=== PATIENT | male | born 1940 | race Caucasian/White ===

== ENCOUNTER 2017-03-11 06:10 | Emergency (ER) | payer MEDICARE ==
[~2017-03-11] VITALS: Ht 177.8 cm; Wt 82.0 kg
[~2017-03-11 06:10] MED LIST: DICL-86 PO; FISH1000 PO; LEVO100T4 PO; MEVA40TA6 PO; OMEP20CA5 PO; ONDA1TAB16 PO; TAB-TAB PO
[2017-03-11 06:11] VITALS: BP 147/84; PULSE 92; RESP 18; TEMP 97.8; O2SAT 96
--- NOTE | 2017-03-11 06:37 | PD ---
HPI Chief Complaint: Pain: Acute or Chronic Time Seen by Provider: 06:31 Travel History International Travel<30 days: No Contact w/Intl Traveler<30days: No Traveled to known affect area: No History of Present Illness HPI Patient comes emergency Department complaining of worsening right knee pain. Patient reports pain is been ongoing for several years getting worse over the past couple of months. Patient reports has been be getting even worse over the past week. Patient reports he saw orthopedic on Wednesday where he had x-rays done and was told take ibuprofen 200 mg for pain and follow up after doing physical therapy. Patient states he has not started physical therapy yet and continues to have pain has described as burning like in nature anterior aspect of his right knee is worse with walking and bending his right knee. Pain improves with moving around. Patient denies any fevers, trauma, edema, numbness or tingling anywhere, or radiation of the pain. PFSH Past Medical History Cancer: Yes (PROSTATE) Diverticulitis: Yes Hiatal Hernia: Yes Radiation Therapy: Yes Thyroid Disease: Yes (HYPO) Social History Alcohol Use: No Tobacco Use: No Substance Use: No Allergies-Medications (Allergen,Severity, Reaction): Uncoded Allergies: THANES (Allergy, Mild, 06/19/09) Reported Meds & Prescriptions Reported Meds & Active Scripts Active Prednisone 20 Mg Tab 20 Mg PO DAILY 3 Days Start on 03/12/17 Zofran Tab (Ondansetron HCl) 4 Mg Tab 4 Mg PO Q6-8HPRN Reported Voltaren (Diclofenac Sodium) 75 Mg Tabec 75 Mg PO BID Levothyroxine 100 mcg (Levothyroxine Sodium) 100 Mcg Tab 100 Mcg PO DAILY Multivitamin (Multivitamins) 1 Tab Tab 1 Tab PO DAILY Fish Oil 1,000 Mg Cap 1,000 Mg PO DAILY Mevacor (Lovastatin) 40 Mg Tab 40 Mg PO DAILY Prilosec 20 mg (Omeprazole) 20 Mg Capcr 20 Mg PO DAILY Review of Systems Except as stated in HPI: all other systems reviewed are Neg Physical Exam Narrative GENERAL: Well-developed, well nourished, in no acute distress, and non-ill appearing. SKIN: Focused skin assessment warm and dry. HEAD: Atraumatic. Normocephalic. EYES: Pupils equal and round. EOMI. No scleral icterus. No injection or drainage. ENT: No nasal bleeding or discharge. Mucous membranes pink and moist. NECK: Trachea midline. Supple. No nuclear rigidity. RESPIRATORY: No accessory muscle use. No respiratory distress. MUSCULOSKELETAL: No obvious deformities. No clubbing. No cyanosis. No edema. Decreased range of motion right knee secondary pain. Knee: Negative patellar apprehension, varus and valgus maneuvers, anterior draw test, and Rosalba test. Pulses equal BL distal to injury. Capillary refill less than 2 seconds distal to injury and equal BL. FROM distal to injury and equal BL. Strength distal to injury equal BL. NV intact distal to injury. Dorsal pulses equal BL. Sensation equal BL 1st web space. Patient reports there is palpation over medial anterior aspect of right knee. There is no erythematous, crepitus, or induration. It is afebrile. NEUROLOGICAL: Awake and alert. No obvious cranial nerve deficits. Motor grossly within normal limits. Normal speech. PSYCHIATRIC: Appropriate mood and affect; insight and judgment normal. Data Data Last Documented VS Vital Signs Date Time Temp Pulse Resp B/P (MAP) Pulse Ox O2 Delivery O2 Flow Rate FiO2 03/11/17 07:42 100 03/11/17 06:25 16 03/11/17 06:11 97.8 92 Room Air Orders Orders Acetamin-Hydrocod 325-5 Mg (Conger 5-325 (03/11/17 06:45) Dexamethasone Inj (Decadron Inj) (03/11/17 06:45) Splint Or Brace Apply/Monitor (03/11/17 06:32) Ed Discharge Order (03/11/17 07:28) MDM Medical Decision Making Medical Screen Exam Complete: Yes Emergency Medical Condition: Yes Differential Diagnosis Fracture, strain, contusion, bursitis, arthritis, septic arthritis, acute on chronic pain, chronic pain Narrative Course There is no evidence to suggest infectious bursitis at this time. There is no trauma to suspect contusion, strain or fracture. There is no clinical evidence to suggest gout or pseudogout, osteoarthritis, Rheumatoid arthritis, or septic arthritis. There is also no evidence to suggest tendonitis. Patient in no obvious distress upon re-evaluation. Patient was asked if they wanted to speak to my attending, which the patient did not wish to do at this time. Any questions/concerns in reference to patient diagnosis/condition discussed and clarified prior to patient's discharge. Reinforced sheer importance of close follow up with patient's primary physician or primary care clinic. Instructed patient to return to ED immediately, if symptoms return/ worsen. Patient showed understanding of above instructions. Further instructions and recommendations were detailed in discharge paperwork. Patient ambulated without difficulty out of ED at discharge. Diagnosis Primary Impression: Knee pain, right Qualified Codes: M25.561 - Pain in right knee Patient Instructions: General Instructions, Knee Exercises (GEN), Knee Pain (ED ) Additional Instructions: Follow-up with your primary care physician and orthopedics next week for reevaluation. Take all medication as prescribed. Do not take ibuprofen or diclofenac while taking medication prescribed today. Use [id number] Tylenol as needed for additional pain control. Follow instructions on the packaging. Wear Iggy wrap as needed for comfort. Return to the emergency department if symptoms get worse. Med/Other Pt SpecificInfo: Prescription(s) given Scripts Prednisone (Prednisone) 20 Mg Tab 20 MG PO DAILY for 3 Days, #3 TAB 0 Refills Start on 03/12/17 Prov: Rama Simmons DO 03/11/17 Disposition: 01 DISCHARGE HOME Condition: Stable Rudy Louis Mar 11, 2017 06:37
[2017-03-11] MEDS ORDERED: PRED20 PO (06:38)
[2017-03-11] MEDS ORDERED: DEXAMETHASONE SOD PHOS 20 MG/5 ML VIAL IM ONE (06:45)
[2017-03-11] MEDS ORDERED: ACETAMINOPHEN/HYDROcodone 325 MG/5 MG TAB PO ONE (06:45)
== END 2017-03-11 07:43 | disposition home or self-care (01) ==
LOC: NEPD 06:10
DX: M25.561 Pain in right knee (principal); E03.9 Hypothyroidism, unspecified; Z79.899 Other long term (current) drug therapy; Z87.19 Personal history of other diseases of the digestive system; Z85.46 Personal history of malignant neoplasm of prostate
CPT/HCPCS: 96372; 99282; J1100

== ENCOUNTER 2017-05-18 10:25 | Inpatient (IN) | payer MEDICARE ==
--- NOTE | 2017-05-17 10:34 | MH ---
cc: MARIAN HIRSCH MD DATE OF ADMISSION: 05/18/2017 ADMITTING DIAGNOSES Osteoarthritis of the right knee, varus deformity right knee, chondrocalcinosis right knee, pain right knee, gait disturbance. HISTORY The patient is a 77-year-old white male who has experienced pain of his right knee of longstanding duration. His history dated back almost 30 years when he was diagnosed as having calcium deposition about his right knee for which he was advised conservative treatment. Over the years thereafter, he had done reasonably well having retired from previous employment as a macias in the construction industry. Within the past several months, he experienced a flare-up of pain about his right knee unrelated to any recent injury or unusual activity for which he had been conforming to his daily routine in his home environment. His pain became more pronounced with a giving way sensation for which he began utilizing a cane as an ambulatory aid and taking diclofenac twice daily. He presented to the undersigned physician in February of this past year, and at that time x-ray studies did demonstrate narrowing throughout the medial compartment associated with a degenerative change and a varus deformity of at least 8 degrees magnitude, intra-articular calcification throughout the lateral compartment consistent with chondrocalcinosis. The patient was to continue with diclofenac and was initiated into a physical therapy program while being followed on an outpatient basis. His pain became somewhat more pronounced for which he did require at least one emergency room evaluation where he was given a prednisone injection and prescribed a course of prednisone thereafter. His symptoms tended to wax and wane at that time for which he elected to continue with conservative management until returning to the office in April of this year. He had completed a CT scan of his right knee which identified extensive chondrocalcinosis with no associated fracture but a significant joint effusion. The patient was absolutely miserable with regards to ongoing pain about his right knee for which he was remaining incapacitated with regards to ambulatory activities and continued to require use of his cane as a full-time ambulatory aid. Findings and treatment options were reviewed with the patient at that time. The pros and cons of continuing with conservative management versus operative intervention that would involve arthroscopic surgery versus total knee arthroplasty were reviewed in detail. The pluses and minuses of each of these procedures were outlined. Emphasis was made regarding the fact that the decision to proceed with surgery would be left entirely to the patient's discretion. The patient readily admitted that he was more than eager to proceed with operative treatment expressing his preference for total knee replacement as being the treatment of choice which in all likelihood would afford him a more favorable long-term benefit. In compliance with his wishes, he has currently been scheduled for admission in order that the above be accomplished. PAST MEDICAL HISTORY His past medical history, hospitalizations and surgeries have included - 1. Lumbar laminectomy and disc excision with fusion. 2. Laparoscopic cholecystectomy. 3. Colonoscopy. The patient's medical illnesses include prostate cancer for which he has undergone previous radiation therapy. Additional illnesses include - 1. Hypothyroidism. 2. Elevated cholesterol. 3. Hypertension. 4. Diabetes. 5. Acid reflux. MEDICATIONS His current medications. 1. Levofloxacin 0.1 mg daily. 2. Lovastatin 40 mg twice daily. 3. Lisinopril 2.5 mg daily. 4. Metformin 1000 mg twice daily. 5. Omeprazole 20 mg daily. 6. Vitamin B12 2000 mg daily. 7. Multivitamin tablet daily. 8. Fish oil 1200 mg daily. The patient conforms to a low-calorie diet with regards to his diabetes. ALLERGIES HE DENIES ANY KNOWN DRUG ALLERGIES. REVIEW OF SYSTEMS He does wear glasses for reading purposes. Denies headache, seizure or syncope. No sinus congestion or epistaxis. Diminished auditory acuity but hearing aids are not required. No tinnitus. No bleeding gums or dysphagia. He has partial upper dentures. Denies cough, shortness of breath, upper respiratory infection, pneumonia or tuberculosis. No angina. He is medically managed for hypertension. His appetite is good. Bowel movements are regular. No hepatitis. He is status post cholecystectomy. No ulcers. No hemorrhoids. No urinary tract infection. He has a history of kidney stones with spontaneous passage. No prostate disease. No history of fractures. No psychiatric illness. Remaining review of systems is unremarkable and noncontributory. FAMILY HISTORY The patient has been 55 years. His is 75 years of age. Her medical illnesses include insulin dependent diabetes and atrial fibrillation. No children. Family history is positive for hypertension, diabetes, heart disease, liver disease, breast, gastric and prostate cancer. 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 He completed a high school education. He denies active use of tobacco for at least 40 years but had been a two pack per day for approximately 20 years prior to that time. Ethanol consumption in the form of an occasional beer. PHYSICAL EXAMINATION Height 5 feet 9 inches, weight 176 pounds. GENERAL: An alert, oriented and responsive 77-year-old white male sitting quietly upon the examination table with no apparent distress. HEAD, EARS, EYES NOSE AND THROAT: Pupils are equal, round and reactive to light. Extraocular movements full. Sclerae are clear. External nares clear. External auditory canals clear. Semi-edentulous with dental implant in place about the maxillary distribution. Mucous membranes pink and moist. Pharynx clear. NECK: Supple. Active range of motion with no appreciable pain. Carotid pulse bilaterally. Trachea midline. Thyroid without enlargement. LUNGS: Clear to auscultation and percussion. No CVA tenderness. No discomfort throughout the dorsal lumbar spine. HEART: Regular rhythm. No murmur or gallop. ABDOMEN: Abdomen is soft, nontender. Bowel sounds present. RECTAL: Per primary care physician. EXTREMITIES: Right knee. No appreciable swelling or effusion. Obvious varus deformity with medial joint line tenderness. Apprehension and compression sign negative. Limited mobility in the 100 degree range of flexion with pain at the extreme of motion. No associated crepitation. No collateral ligamentous laxity. Magdalena test and drawer sign negative. Pivot shift and Rosalba sign positive for medial compartment pain. Straight-leg raising unremarkable at 80 degrees. Satisfactory mobility of the right hip with no associated pain. Mild antalgic gait. NEUROLOGIC: Cranial nerves II through XII grossly intact. IMPRESSION Osteoarthritis right knee, varus deformity right knee, chondrocalcinosis right knee pain right knee, gait disturbance. PLAN Right total knee arthroplasty. The nature of the planned surgical procedure, the potential complications and risks associated, the expectations of surgery and the consent form were thoroughly reviewed with the patient in the presence of his prior to admission to the hospital. Marco Antonio has indicated his full understanding regarding all of the above and given consent to proceed with treatment as outlined. Medical evaluation and clearance for surgery will be completed per preoperatively. MD WENDY Corado/RICHIE /4:54 PM /10:30 AM
[~2017-05-18] VITALS: Ht 177.8 cm; Wt 77.5 kg
[~2017-05-18 10:25] MED LIST changes: -DICL-86 PO; -FISH1000 PO; +FISHCAP4 PO; -LEVO100T4 PO; +LEVO100T5 PO; +LISI2.5T3 PO; +LOVA40TA PO; +METF1000 PO; -MEVA40TA6 PO; +MULTTAB67 PO; -OMEP20CA5 PO; +OMEP20TA93 PO; -ONDA1TAB16 PO; -TAB-TAB PO; +VITA20004 PO
[2017-05-18] MEDS ORDERED: SODIUM CHLORID 0.9% 500 ML IV PRN (11:30)
[2017-05-18] MEDS ORDERED: TRANEXAMIC ACID 1 GM PRIOR TO PROCEDURE IV SCH ×2 (11:30)
[2017-05-18] MEDS ORDERED: ceFAZolin 2 GM PREMIX 50 ML IV SCH (11:30)
[2017-05-18] MEDS ORDERED: POVIDONE IODINE 5% (ANTISEPSIS KIT) 4 APPLICATIONS EACH NARE PRN (11:30)
[2017-05-18] MEDS ORDERED: CHLORHEXIDINE GLUCONATE 2 % 1 PACK (2 CLOTHS) TOPICAL PRN (11:30)
[2017-05-18] MEDS ORDERED: POVIDONE IODINE 7.5% SCRUB 118 ML BOTTLE TOPICAL SCH (11:30)
[2017-05-18] MEDS ORDERED: METOPROLOL TARTRATE 25 MG TAB PO PRN (11:30)
[2017-05-18] MEDS ORDERED: LACTATED RINGER'S 1000 ML IV PRN (11:30)
[2017-05-18] MEDS ORDERED: ceFAZolin INJ 1,000 MG VIAL ONE (11:50)
[2017-05-18] MEDS ORDERED: ACETAMINOPHEN 1000 MG/100 ML 100 ML IV ONE (13:40)
[2017-05-18] MEDS ORDERED: MIDAZOLAM HCL 2 MG/2 ML VIAL ONE (13:40)
[2017-05-18] MEDS ORDERED: FAMOTIDINE 20 MG/2 ML VIAL ONE (13:41)
[2017-05-18] MEDS ORDERED: TRANEXAMIC ACID 1 GM POST-OP IV SCH ×2 (14:30)
[2017-05-18] MEDS ORDERED: BUPIVACAINE LIPOSOME PF 1.3% 20 ML VIAL ONE (15:06)
[2017-05-18] MEDS ORDERED: DO NOT ADM ANY ANTICOAGULANT DRUGS PRN (16:05)
[2017-05-18] MEDS ORDERED: ASPI-183 PO (16:07)
[2017-05-18] MEDS ORDERED: HYDR-3516 PO (16:07)
[2017-05-18] MEDS ORDERED: *MEPERIDINE 25 MG INJ VIAL PERIprocedural Use ONLY ONE (16:07)
--- NOTE | 2017-05-18 16:09 | HHI.FF ---
Face to Face Verification Diagnosis: (1) DJD (degenerative joint disease) of knee Physical Therapy Gait training Knee: Total knee, Protocol: Right, Full weight bearing Right LE Weight Bearing: WB as tolerated Right LE Range of Motion: Active ROM Nursing Dressing Changes: Daily dressing change I have seen patient Marco Antonio Quan on 05/18/17. My clinical findings support the need for the requested home health care services because: Limited ability to care for self High risk of falls I certify that my clinical findings support that this patient is homebound because: Post-op weakness Unsteady gait/balance Unsafe to leave home unassisted Ramos Reina MD May 18, 2017 16:09
[2017-05-18] MEDS ORDERED: WALKER WHEELS/F1 MIS (16:12)
[2017-05-18] MEDS ORDERED: NALOXONE HCL 0.4 MG/ML AMP IV PUSH PRN (16:15)
[2017-05-18] MEDS ORDERED: ACETAMINOPHEN 325 MG TAB PO PRN (16:15)
[2017-05-18] MEDS ORDERED: diphenhydrAMINE HCL 25 MG CAP PO PRN (16:15)
[2017-05-18] MEDS ORDERED: Post-op Orders (for Pharmacy) XX ONE (16:15)
[2017-05-18] MEDS ORDERED: ACETAMINOPHEN/HYDROcodone 325 MG/5 MG TAB PO PRN (16:15)
[2017-05-18] MEDS ORDERED: MISCELLANEOUS PHARMACY INFORMATION XX ONE (16:15)
[2017-05-18] MEDS ORDERED: ZOLPIDEM TARTRATE 5 MG TAB PO PRN (16:15)
[2017-05-18] MEDS ORDERED: ONDANSETRON HCL 4 MG/2 ML VIAL IVP PRN (16:15)
[2017-05-18] MEDS ORDERED: DOCUSATE SODIUM 100 MG CAP PO PRN (16:15)
[2017-05-18] MEDS ORDERED: *LABETALOL HCL 100 MG/20 ML VIAL PERIprocedural Use ONLY ONE (16:17)
[2017-05-18] MEDS ORDERED: *morphine SULFATE 10 MG/ML PERIprocedure ONLY ONE (16:30)
--- NOTE | 2017-05-18 16:37 | RADRPT ---
EXAM DATE/TIME: 05/18/2017 16:05 [facility] COMPARISON: No previous studies available for comparison. INDICATIONS : Post op right knee MEDICAL HISTORY : None. SURGICAL HISTORY : right knee replaced ENCOUNTER: Initial ACUITY: 1 day PAIN SCORE: 10/10 LOCATION: Right knee FINDINGS: There is placement of a total knee prosthesis appearing to be well-seated with anterior overlying robbi gical drains. CONCLUSION: Total knee prosthesis well seated Gabriel Souza MD on May 18, 2017 at 16:34 Board Certified Radiologist. This report was verified electronically.
[2017-05-18] MEDS ORDERED: MEPERIDINE HCL 25 MG/ML VIAL IV ONE (16:45)
[2017-05-18] MEDS ORDERED: TRANEXAMIC ACID INJ 1,000 MG in SODIUM CHLORIDE 0.9% INJ 100 ML IV SCH (17:00)
[2017-05-18] MEDS: DEXT 5%-NACL 0.45% 1000 ML INJ 1,000 ML IV SCH (17:00)
[2017-05-18] MEDS: MORPHINE SULFATE 30 MG/30 ML PCA IV SCH (17:03)
[2017-05-18 18:05] VITALS: BP 134/76; PULSE 94; RESP 18; TEMP 97.2; O2SAT 96
[2017-05-18] MEDS ORDERED: PILL SPLITTER OTHER PRN (19:15)
[2017-05-18 20:00] VITALS: BP 133/76; PULSE 87; RESP 15; TEMP 95.4; O2SAT 98
[2017-05-18 20:43] VITALS: O2SAT 93
[2017-05-18] MEDS: PCA - TOTAL MG MORPHINE DELIVERED PER SHIFT SCH (22:00)
[2017-05-19] VITALS: BP 157/83; PULSE 82; RESP 14; TEMP 96; O2SAT 95
[2017-05-19] MEDS: DEXT 5%-NACL 0.45% 1000 ML INJ 1,000 ML IV SCH ×2 (00:29→16:01)
[2017-05-19 04:00] VITALS: BP 130/83; PULSE 83; RESP 15; TEMP 97.4; O2SAT 96
[2017-05-19] MEDS: MORPHINE SULFATE 30 MG/30 ML PCA IV SCH (04:31)
[2017-05-19] MEDS: PCA - TOTAL MG MORPHINE DELIVERED PER SHIFT SCH ×3 (05:21→22:00)
[2017-05-19] MEDS: LEVOTHYROXINE SODIUM 100 MCG TAB PO SCH (05:21)
[2017-05-19] MEDS: LISINOPRIL 5 MG TAB PO SCH (07:18)
[2017-05-19] MEDS: PANTOPRAZOLE SOD 20 MG DELAYED RELEASE TAB PO SCH (07:19)
[2017-05-19] MEDS: metFORMIN HCL 500 MG TAB PO SCH ×2 (07:19→18:23)
[2017-05-19 07:20] LABS: HEMATOCRIT 31.5 % (39.0-51.0); HEMOGLOBIN 10.3 GM/DL (13.0-17.0)
[2017-05-19 08:00] VITALS: BP 169/77; PULSE 96; RESP 18; TEMP 98.8; O2SAT 95
--- NOTE | 2017-05-19 11:12 | MP ---
cc: MARIAN REINA DATE OF SURGERY 05/18/2017 PREOPERATIVE DIAGNOSIS Osteoarthritis of the right knee, varus deformity right knee, chondrocalcinosis right knee and pain of the right knee, gait disturbance. POSTOPERATIVE DIAGNOSIS Osteoarthritis of the right knee, varus deformity right knee, chondrocalcinosis right knee and pain of the right knee, gait disturbance. PROCEDURE Right total knee arthroplasty. SURGEON Marian Reina MD ANESTHESIA General endotracheal INDICATIONS This is a 77-year-old white male with right knee pain of longstanding duration. His history extends back almost 30 years when he was diagnosed as having calcium deposits about his right knee for which she was advised conservative treatment. Over the years thereafter, he did reasonably well having retired from previous employment as a macias and the construction industry. During the past year, he experienced a flare-up of pain about his right knee unrelated to any recent injury or unusual activity while he was going conforming to his daily routine in this home environment. This pain became more pronounced with a giving way sensation for which he utilized a cane as an ambulatory aid and was taking diclofenac twice daily. He presented to the undersigned physician in February of this past year and at this time his x-ray studies demonstrated arthritic change throughout the medial compartment with a varus deformity of at least 8 degrees magnitude and intra-articular calcification throughout the lateral compartment consistent with chondrocalcinosis. The patient elected to continue with diclofenac and was initiated into a course of physical therapy while being followed on an outpatient basis. His pain became more pronounced for which he did require at least one emergency room evaluation at which time he was then treated with prednisone. His symptoms waxed and waned thereafter and he later underwent a CT scan of his right knee which identified extensive chondrocalcinosis with no associated fracture, but significant joint effusion. The patient was absolutely miserable with regards to ongoing pain about his right knee for which he remained incapacitated with regards to all ambulatory activities and continuing to require use of his cane as a full-time ambulatory aid. Findings and treatment options were reviewed with the patient. The pros and cons of continuing with conservative management versus operative intervention that would involve arthroscopic surgery versus total knee replacement were reviewed in detail. The pluses and minuses of each of these surgical procedures were outlined. Emphasis was made regarding the fact that the decision to proceed with surgery would be left entirely to the patient's discretion. The patient readily admitted that he was more than eager to proceed with operative treatment and indicated his desire for total knee arthroplasty as being the treatment of choice which in all likelihood would afford him the more favorable long-term benefit. In compliance with his wishes, he was scheduled for admission at this time in order that the above be accomplished. FORMAT Following the induction of satisfactory general anesthesia by endotracheal intubation as completed per the department of anesthesia, a tourniquet was established around the proximal portion of the right lower extremity. The extremity proper was isolated with a U drape thereafter being prepped with Betadine solution and draped into a sterile field in the routine manner. Prior to initiation the actual procedure, the standard time-out protocol was completed. All parameters were appropriately addressed and confirmed by operating room personnel. The extremity was elevated for approximately one minute and the tourniquet thus inflated to 250 mmHg pressure. A sharp skin incision was initiated midline over the anterior aspect of the knee and developed underlying subcutaneous tissue with hemostasis maintained by electrocautery. By deepening dissection, the anterior capsule was exposed. A medial capsulotomy completed and the patella subluxed in a lateral orientation. Examination of the joint space revealed significant degenerative changes throughout the medial compartment extending into the patellofemoral articulation. Prominent chondrocalcinosis was associated. The articular surface of the patella was resected with power saw. The three holed guide was utilized for establishing post holes. Anterior cruciate ligament as well as medial and lateral meniscus structures were sharply excised. A centering hole was placed in the distal aspect of the femur allowing positioning of the intramedullary guide. The distal femoral cutting jig was attached and the distal femur resected. AP measurement noted 70 mm sizing to be appropriate. The matching cutting block was positioned. Anterior, posterior and chamfer cuts were completed. The tibial plateau was thereafter subluxed in an anterior orientation allowing positioning of the extramedullary guide. The tibial plateau was resected measured with 79 mm sizing determined to be satisfactory. A trial reduction followed utilizing a 70 mm anatomic femoral component, a 79 mm tibial base with a 10 mm bearing insert. The knee readily reduced and was carried through a passive range of motion with stability being demonstrated at both 0 and 90 degrees flexed posture to varus-valgus stress. Orientation was confirmed as appropriate with measurement of the pelvic guide through the mechanical axis of the knee. A trial reduction followed utilizing a 34 mm standard patellar button. Once again, good tracking was demonstrated with no tendency toward subluxation. All trial components being removed, the remaining portion of the proximal tibia was prepared for insertion of the permanent component. The joint space was thoroughly lavaged with pulsating antibiotic solution. Hemostasis maintained by electrocautery. An autogenous bone plug was inserted into the distal femoral guide hole and thereafter a preparation of Palacos bone cement was utilized in inserting knee components in a sequential fashion which included a 79 mm fixed cruciate tibial plate to which a 10 mm Vanguard tibial bearing insert was secured with locking arreguin. The 70 mm vanguard femoral component was firmly seated onto the distal femur, excess cement being removed, the knee was brought to full extension and thereafter the 10 mm standard three post patellar button was attached and maintained in place with patellar clamp while cement hardening was completed. Final range of motion assessment noted good tracking and stability throughout the knee. Irrigation was repeated with hemostasis maintained. Autovac drain tubes were inserted through superior stab wounds. The capsule was repaired with 0 Vicryl suture. The remaining portion of the wound was closed in layers in the routine manner with skin margins being reapproximated with a running subcuticular 3-0 Vicryl suture. Steri-Strips were applied over which Xeroform gauze and a bulky dry sterile dressing placed. Tourniquet deflated after 42 minutes of tourniquet time. The extremity being supported in a canvas knee splint, anesthesia was discontinued and the patient thus transferred to a hospital bed and returned to the recovery room in satisfactory condition having tolerated his operative procedure well. Estimated blood loss was 75-100 cc. All implants were of the [employer] hand icer. MD WENDY Corado/WILBER /3:51 PM /11:02 AM
[2017-05-19 12:00] VITALS: BP 125/69; PULSE 87; RESP 18; TEMP 98.3; O2SAT 94
[2017-05-19] MEDS: ACETAMINOPHEN/HYDROcodone 325 MG/5 MG TAB PO PRN ×3 (14:05→22:12)
[2017-05-19] MEDS: RIVAROXABAN 10 MG TAB PO SCH (15:47)
[2017-05-19 16:00] VITALS: BP 155/77; PULSE 99; RESP 18; TEMP 98.9; O2SAT 94
--- NOTE | 2017-05-19 17:33 | PD.CONS ---
HPI Service [facility] Consult Requested By Reason for Consult Medical Management Primary Care Physician No Primary Care Physician Diagnoses: (1) DJD (degenerative joint disease) of knee History of Present Illness 77M who was admitted and underwent total right knee replacement. He is doing well post op, only complaint is post sugical pain. Review of Systems Constitutional: DENIES: Fever, Chills, Dizziness Eyes: DENIES: Blurred vision, Eye inflammation, Vision loss Ears, nose, mouth, throat: DENIES: Hearing loss, Nasal discharge, Throat pain, Ear Pain, Sinus Pain, Toothache Respiratory: DENIES: Cough, Wheezing, Hemoptysis Cardiovascular: DENIES: Chest pain, Palpitations, Syncope Gastrointestinal: DENIES: Black stools, Bloody stools, Constipation, Diarrhea, Nausea, Vomiting Genitourinary: DENIES: Urinary frequency, Urinary incontinence, Hematuria Musculoskeletal: COMPLAINS OF: Joint pain, Stiffness Integumentary: DENIES: Rash Immunologic/allergic: DENIES: Eczema Neurologic: DENIES: Headache, Seizures, Speech Problems Psychiatric: DENIES: Anxiety, Confusion, Mood changes, Depression Past Family Social History Allergies: Coded Allergies: No Known Allergies (Unverified , 05/18/17) Past Medical History Type 2 diabetes Hiatal Hernia Prostate CA Past Surgical History Right knee replacement yesterday Lumbar fusion 1970 Family History Breast CA Type 2 diabetes Social History No smoking or alcohol for the last 40 years Physical Exam Vital Signs Vital Signs Date Time Temp Pulse Resp B/P (MAP) Pulse Ox O2 Delivery O2 Flow Rate FiO2 05/19/17 16:00 98.9 99 18 155/77 (103) 94 05/19/17 12:00 98.3 87 18 125/69 (87) 94 05/19/17 08:00 98.8 96 18 169/77 (107) 95 05/19/17 05:21 17 05/19/17 04:40 18 05/19/17 04:31 17 05/19/17 00:00 96.0 82 14 157/83 (107) 95 05/18/17 22:00 18 05/18/17 20:43 93 Nasal Cannula 2.00 05/18/17 20:00 95.4 87 15 133/76 (95) 98 05/18/17 18:05 97.2 94 18 134/76 (95) 96 05/18/17 17:35 80 16 96 Nasal Cannula 3 05/18/17 17:30 97.6 81 16 139/78 (98) 95 Nasal Cannula 3 Physical Exam GENERAL: Well-nourished, well-developed patient. SKIN: Warm and dry, surgical incision under bandages on right leg, surgical drain HEAD: Normocephalic. EYES: No scleral icterus. No injection or drainage. NECK: Supple, trachea midline. No JVD or lymphadenopathy. CARDIOVASCULAR: Regular rate and rhythm without murmurs, gallops, or rubs. RESPIRATORY: Breath sounds equal bilaterally. No accessory muscle use. GASTROINTESTINAL: Abdomen soft, non-tender, nondistended. NEUROLOGICAL: Awake, alert, and oriented x 3. Non-focal. Laboratory Laboratory Tests Test 05/19/17 06:05 Hemoglobin 10.3 Hematocrit 31.5 Result Diagram: 05/19/17 0605 Assessment and Plan Problem List: (1) DJD (degenerative joint disease) of knee ICD Code: M17.10 - Unilateral primary osteoarthritis, unspecified knee Assessment and Plan Total Right knee replacement 05/18/17 Doing well post op, up to feet today, limited ambulation due to pain Type 2 Diabetes Self-described "borderline" diabetic, well managed on Metformin alone Will give Metformin given expected short stay Coverage may be added if needed BMP for baseline glucose tomorrow morning Hypothyroidism Continue home meds Dyslipidemia Held while hospitalized due to rhabdomyolysis risk DVT Prophylaxis Xarelto Problem Qualifiers (1) DJD (degenerative joint disease) of knee: Qualified Codes: M17.11 - Unilateral primary osteoarthritis, right knee Bebeto Aldana MD May 19, 2017 17:33
[2017-05-19 20:17] VITALS: BP 158/91; PULSE 106; RESP 18; TEMP 99.6; O2SAT 97
[2017-05-19 22:14] LABS: AUTOMATED NEUTROPHIL # 6.8 TH/MM3 (1.8-7.7); BASOPHIL % 0.4 % (0.0-2.0); EOSINOPHIL # 0.1 TH/MM3 (0-0.4); EOSINOPHIL % 0.5 % (0.0-4.0); HEMATOCRIT 29.8 % (39.0-51.0); LYMPHOCYTE # 2.8 TH/MM3 (1.0-4.8); MEAN CELL VOLUME 97.3 FL (80.0-100.0); MEAN CORPUSCULAR HEMOGLOBIN 32.7 PG (27.0-34.0); MEAN CORPUSCULAR HGB CONC 33.6 % (32.0-36.0); MEAN PLATELET VOLUME 8.1 FL (7.0-11.0); MONO % 9.2 % (0.0-8.0); NEUT % 63.9 % (16.0-70.0); PLATELET COUNT 248 TH/MM3 (150-450); RED BLOOD COUNT 3.07 MIL/MM3 (4.50-5.90); RED CELL DISTRIBUTION WIDTH 14.8 % (11.6-17.2); WHITE BLOOD COUNT 10.7 TH/MM3 (4.0-11.0)
[2017-05-19 22:23] LABS: BICARBONATE 25.9 MEQ/L (21.0-32.0); CALCIUM 8.2 MG/DL (8.5-10.1); CREATININE 1.1 MG/DL (0.60-1.30)
[2017-05-20] VITALS (8 sets, daily range): BP systolic 129–173; BP diastolic 83–94; PULSE 102–128; RESP 18–20; TEMP 97.6–100; O2SAT 92–98
[2017-05-20] MEDS: DEXT 5%-NACL 0.45% 1000 ML INJ 1,000 ML IV SCH ×3 (00:01→16:01)
[2017-05-20] MEDS: ACETAMINOPHEN/HYDROcodone 325 MG/5 MG TAB PO PRN ×4 (02:24→16:20)
[2017-05-20] MEDS: PCA - TOTAL MG MORPHINE DELIVERED PER SHIFT SCH ×3 (06:00→22:00)
[2017-05-20] MEDS: LEVOTHYROXINE SODIUM 100 MCG TAB PO SCH (06:11)
--- NOTE | 2017-05-20 07:27 | PD.ORT.PN ---
Subjective Post Op Day #: 2 Subjective Remarks He is doing well. He has minimal complaints related to his knee at this time. He has been able to get out and walk a little bit with a walker. He lives in a motor home but is able to negotiate steps without difficulty. Range of Motion 0-78. Distance Walked 30 feet with PT. Objective Vitals Vital Signs Date Time Temp Pulse Resp B/P (MAP) Pulse Ox O2 Delivery O2 Flow Rate FiO2 05/20/17 04:58 98.5 106 18 160/90 (113) 95 05/20/17 01:08 97.6 111 18 140/85 (103) 92 05/19/17 22:00 17 05/19/17 20:17 99.6 106 18 158/91 (113) 97 05/19/17 16:00 98.9 99 18 155/77 (103) 94 05/19/17 12:00 98.3 87 18 125/69 (87) 94 05/19/17 08:00 98.8 96 18 169/77 (107) 95 I/O 05/19/17 05/19/17 05/19/17 05/20/17 05/20/17 05/20/17 07:00 15:00 23:00 07:00 15:00 23:00 Intake Total 1480 ml 650 ml Output Total 610 ml 100 ml Balance 870 ml 550 ml Intake Oral 480 ml 650 ml IV Total 1000 ml Output Urine Total 550 ml Stool Total 0 ml Drainage Total 60 ml 100 ml # Voids 1 3 1 3 # Bowel Movements 0 0 Result Diagram: 05/19/17 2140 05/19/17 2140 Imaging Last 72 hours Impressions Knee X-Ray 05/18/17 1601 Signed Impressions: Service Date/Time: Thursday, May 18, 2017 16:05 - CONCLUSION: Total knee prosthesis well seated Gabriel Souza MD Objective Remarks He is sitting out of bed in a chair. His knee is flexed easily to 85-90. His dressing is dry and intact. His neurovascular status is intact. Assessment & Plan Ortho Post Op Day #: 2 Problem List: (1) Status post total right knee replacement ICD Codes: Z96.651 - Presence of right artificial knee joint Plan: Continue postop care and PT. Assessment and Plan Condition: Good. Orthopedically stable. DVT prophylaxis: aspirin, sequentials. Discharge plans: Home with home health care. Further follow-up and care is through Dr. Reina. Jorge Alberto Boyer MD ([facility]) May 20, 2017 07:27
[2017-05-20] MEDS: metFORMIN HCL 500 MG TAB PO SCH ×2 (08:31→17:29)
[2017-05-20] MEDS: PANTOPRAZOLE SOD 20 MG DELAYED RELEASE TAB PO SCH (08:31)
[2017-05-20] MEDS: LISINOPRIL 5 MG TAB PO SCH (08:31)
--- NOTE | 2017-05-20 14:13 | HHI.PR ---
Subjective Remarks Overall pain control. However not eating much this morning. No nausea or vomiting. Objective Vitals Vital Signs Date Time Temp Pulse Resp B/P (MAP) Pulse Ox O2 Delivery O2 Flow Rate FiO2 05/20/17 08:00 99.2 128 20 150/87 (108) 96 05/20/17 06:00 18 05/20/17 04:58 98.5 106 18 160/90 (113) 95 05/20/17 01:08 97.6 111 18 140/85 (103) 92 05/19/17 22:00 17 05/19/17 20:17 99.6 106 18 158/91 (113) 97 05/19/17 16:00 98.9 99 18 155/77 (103) 94 I/O 05/19/17 05/19/17 05/19/17 05/20/17 05/20/17 05/20/17 07:00 15:00 23:00 07:00 15:00 23:00 Intake Total 1480 ml 650 ml Output Total 610 ml 100 ml Balance 870 ml 550 ml Intake Oral 480 ml 650 ml IV Total 1000 ml Output Urine Total 550 ml Stool Total 0 ml Drainage Total 60 ml 100 ml # Voids 1 3 1 3 # Bowel Movements 0 0 Result Diagram: 05/19/17 2140 05/19/17 2140 Other Results Item Value Date Time Bedside Blood Glucose 182 mg/dl 05/20/17 0830 Imaging Last Impressions Knee X-Ray 05/18/17 1601 Signed Impressions: Service Date/Time: Thursday, May 18, 2017 16:05 - CONCLUSION: Total knee prosthesis well seated Gabriel Souza MD Objective Remarks GENERAL: This is a well-nourished, well-developed patient, in no apparent distress. CARDIOVASCULAR: Regular rate and rhythm RESPIRATORY: Clear to auscultation. Breath sounds equal bilaterally. No wheezes , rales, or rhonchi. MUSCULOSKELETAL: Extremities without clubbing, cyanosis, or edema. Right knee bandage clean dry intact NEURO: Alert & Oriented x4 to person, place, time, situation. Moves all ext x4 A/P Problem List: (1) DJD (degenerative joint disease) of knee ICD Code: M17.10 - Unilateral primary osteoarthritis, unspecified knee Status: Chronic Assessment and Plan Total Right knee replacement 05/18/17 ; status post operative day #2 Continue postoperative care, physical therapy, pain control. Type 2 Diabetes - Continue metformin, continue blood glucose monitoring with sinus scale insulin as needed and also evaluate oral intake. Hypothyroidism Continue home meds Hypertension- essential, resume lisinopril DVT Prophylaxis Xarelto Problem Qualifiers (1) DJD (degenerative joint disease) of knee: Qualified Codes: M17.11 - Unilateral primary osteoarthritis, right knee Mellisa Gerard MD May 20, 2017 14:13
[2017-05-20] MEDS: RIVAROXABAN 10 MG TAB PO SCH (16:20)
[2017-05-20] MEDS ORDERED: BISACODYL 10 MG SUPP RECTAL PRN (22:00)
[2017-05-21] VITALS: BP 156/99; PULSE 107; RESP 18; TEMP 99.8; O2SAT 95
[2017-05-21] MEDS: DEXT 5%-NACL 0.45% 1000 ML INJ 1,000 ML IV SCH ×2 (00:01→08:01)
[2017-05-21 04:00] VITALS: BP 169/96; PULSE 111; RESP 18; TEMP 98.9; O2SAT 95
[2017-05-21] MEDS: LEVOTHYROXINE SODIUM 100 MCG TAB PO SCH (05:14)
[2017-05-21] MEDS: PCA - TOTAL MG MORPHINE DELIVERED PER SHIFT SCH ×2 (06:00→08:23)
--- NOTE | 2017-05-21 07:59 | PD.ORT.PN ---
Subjective Post Op Day #: 3 Subjective Remarks He is doing well. He has minimal complaints related to his knee at this time. He has been able to get out and walk to the bathroom with a walker. He lives in a motor home but is able to negotiate steps without difficulty. Range of Motion 0 extension to 85 of flexion. Distance Walked 100 feet with physical therapy. Objective Vitals Vital Signs Date Time Temp Pulse Resp B/P (MAP) Pulse Ox O2 Delivery O2 Flow Rate FiO2 05/21/17 04:00 98.9 111 18 169/96 (120) 95 05/21/17 00:00 99.8 107 18 156/99 (118) 95 05/20/17 20:00 99.5 102 18 159/94 (115) 94 05/20/17 19:09 Room Air 05/20/17 18:55 98 Nasal Cannula 2.00 05/20/17 16:00 99.8 107 18 129/88 (102) 98 05/20/17 14:40 95 Nasal Cannula 2.00 05/20/17 14:00 18 05/20/17 12:00 100.0 118 18 173/83 (113) 94 05/20/17 08:00 99.2 128 20 150/87 (108) 96 I/O 05/20/17 05/20/17 05/20/17 05/21/17 05/21/17 05/21/17 07:00 15:00 23:00 07:00 15:00 23:00 Intake Total 360 ml 240 ml Output Total 600 ml Balance -240 ml 240 ml Intake Oral 360 ml 240 ml Output Urine Total 600 ml # Voids 3 2 # Bowel Movements 0 0 Result Diagram: 05/19/17 2140 05/19/17 2140 Imaging Last 72 hours Impressions Knee X-Ray 05/18/17 1601 Signed Impressions: Service Date/Time: Thursday, May 18, 2017 16:05 - CONCLUSION: Total knee prosthesis well seated Gabriel Souza MD Objective Remarks He is sitting out of bed in a chair. His dressing is dry and intact. His neurovascular status is intact. Assessment & Plan Ortho Post Op Day #: 3 Problem List: (1) Status post total right knee replacement ICD Codes: Z96.651 - Presence of right artificial knee joint Plan: Continue postop care and PT. Assessment and Plan Condition: Good. Orthopedically stable. DVT prophylaxis: aspirin, sequentials. Discharge plans: Home with home health care today. Further follow-up and care is through Dr. Reina. Jorge Alberto Boyer MD ([place]) May 21, 2017 07:59
[2017-05-21 08:00] VITALS: BP 144/76; PULSE 121; RESP 16; TEMP 97.1; O2SAT 95
[2017-05-21] MEDS: metFORMIN HCL 500 MG TAB PO SCH (08:18)
[2017-05-21] MEDS: PANTOPRAZOLE SOD 20 MG DELAYED RELEASE TAB PO SCH (08:18)
[2017-05-21] MEDS: LISINOPRIL 5 MG TAB PO SCH (08:19)
[2017-05-21] MEDS ORDERED: DOCUSATE SODIUM 100 MG CAP PO SCH (09:00)
[2017-05-21] MEDS ORDERED: MAGNESIUM HYDROXIDE SUSP 30 ML CUP PO SCH (09:00)
[2017-05-21] MEDS: RIVAROXABAN 10 MG TAB PO SCH (13:20)
[2017-05-21] MEDS: ACETAMINOPHEN/HYDROcodone 325 MG/5 MG TAB PO PRN (13:20)
== END 2017-05-21 13:43 | disposition home health service (06) | DRG 470 ==
LOC: HSDI 10:25 → N06A 17:54
PROVIDERS: ADMIT Orthopaedic Surgery; ATTEND Orthopaedic Surgery
PROC: 3E0T3BZ Introduction of Anesthetic Agent into Peripheral Nerves and Plexi, Percutaneous Approach (ICD-10-PCS; 2017-05-18)
PROC: 0SRC0J9 Replacement of Right Knee Joint with Synthetic Substitute, Cemented, Open Approach (ICD-10-PCS; principal; 2017-05-18 13:45)
DX: M17.11 Unilateral primary osteoarthritis, right knee (principal); E11.9 Type 2 diabetes mellitus without complications; I10 Essential (primary) hypertension; M11.261 Other chondrocalcinosis, right knee; M21.161 Varus deformity, not elsewhere classified, right knee; E78.5 Hyperlipidemia, unspecified; K21.9 Gastro-esophageal reflux disease without esophagitis; E03.9 Hypothyroidism, unspecified; Z92.3 Personal history of irradiation; Z85.46 Personal history of malignant neoplasm of prostate; Z79.84 Long term (current) use of oral hypoglycemic drugs; Z98.1 Arthrodesis status; Z87.891 Personal history of nicotine dependence
CPT/HCPCS: 73560; 80048; 82948; 85014; 85018; 85025; 86850; 86900; 86901; 88305; 88307; 88311; 94150; C1776; C9290; J0131; J0690; J2175; J2250; J2270; J3010; J7120; L1830